=== PATIENT | female | born 1975 | race Two or more races ===

== ENCOUNTER 2018-12-09 11:40 | Outpatient (CLI) | payer OTHER | END 2018-12-09 13:00 | disposition home or self-care (01) | LOC: RX STUDY 11:40 | DX: R31.9 Hematuria, unspecified (principal) ==

== ENCOUNTER 2020-06-14 23:27 | Emergency (ER) | payer OTHER ==
[~2020-06-14] VITALS: Ht 160 cm; Wt 68.0 kg
[2020-06-15] MEDS ORDERED: CLONAZEPAM2 M1 (00:10)
[2020-06-15] MEDS ORDERED: NEURONTIN600 M1 (00:10)
[2020-06-15] MEDS ORDERED: MOTRIN IB200 MG (00:10)
[2020-06-15] MEDS ORDERED: PROTONIX40 MG (00:11)
[2020-06-15] MEDS ORDERED: PERCOCET 5-3251 EACH (00:11)
[2020-06-15] MEDS ORDERED: CYCLOBENZAPRINE10 MG PO (02:45)
[2020-06-15] MEDS ORDERED: VOLTAREN-XR100 MG PO (02:45)
== END 2020-06-15 02:59 | disposition home or self-care (01) ==
LOC: ER 23:27
DX: S33.5XXA Sprain of ligaments of lumbar spine, initial encounter (principal); S80.02XA Contusion of left knee, initial encounter; S80.01XA Contusion of right knee, initial encounter; W18.39XA Other fall on same level, initial encounter; Y93.89 Activity, other specified; Y92.018 Other place in single-family (private) house as the place of occurrence of the external cause; Y99.8 Other external cause status

== ENCOUNTER 2021-10-02 01:12 | Emergency (ER) | payer OTHER ==
[~2021-10-02] VITALS: Ht 160 cm; Wt 65.8 kg
[~2021-10-02 01:12] MED LIST: CLONAZEPAM2 M1; CYCLOBENZAPRINE10 MG PO; MOTRIN IB200 MG; NEURONTIN600 M1; PERCOCET 5-3251 EACH; PROTONIX40 MG; VOLTAREN-XR100 MG PO
[2021-10-02] MEDS ORDERED: SURFAK240 M1 PO (05:01)
[2021-10-02] MEDS ORDERED: MINERAL OIL EX473 ML BC (05:01)
[2021-10-02] MEDS ORDERED: METAMUCIL POWD174 GM PO (05:01)
== END 2021-10-02 08:10 | disposition home or self-care (01) ==
LOC: ER 01:12
DX: K59.09 Other constipation (principal)

== ENCOUNTER 2021-12-23 16:31 | Emergency (ER) | payer OTHER ==
[~2021-12-23] VITALS: Ht 160 cm; Wt 59.0 kg
[~2021-12-23 16:31] MED LIST changes: +METAMUCIL POWD174 GM PO; +MINERAL OIL EX473 ML BC; +SURFAK240 M1 PO
[2021-12-23] MEDS ORDERED: ORPHENADRINE C100 MG PO (20:00)
[2021-12-23] MEDS ORDERED: KETO10TA2 PO (20:00)
== END 2021-12-23 21:13 | disposition home or self-care (01) ==
LOC: ER 16:31
DX: M54.9 Dorsalgia, unspecified (principal); G89.29 Other chronic pain; M62.838 Other muscle spasm